=== PATIENT | male | born 1960 | race Caucasian/White ===

== ENCOUNTER 2017-06-27 16:05 | Inpatient (IN) | payer MEDICARE, MEDICAID ==
[2017-06-27] MEDS ORDERED: Ondansetron INJ* 2 MG/ML VIAL IV ONE (16:22)
[2017-06-27] MEDS ORDERED: Pantoprazole IV* 40 MG IV ONE (16:22)
[2017-06-27 16:51] LABS: Hematocrit 52 % (42-52); Hemoglobin 17.5 g/dl (14.0-18.0); Mean Corpuscular HGB Conc 34 g/dl (31-36); Mean Corpuscular Hemoglobin 30 pg (27-31); Mean Corpuscular Volume 90 fL (80-94); Mean Platelet Volume 8 um3 (7.4-10.4); Red Blood Count 5.77 10^6/ul (4.0-5.4); Red Cell Distribution Width 13 % (10.5-15)
[2017-06-27] MEDS ORDERED: Labetalol IV* 5 MG/ML 20 ML VIAL IV PUSH ONE (16:54)
--- NOTE | 2017-06-27 16:59 | RAD ---
Indication: Wheezing. 2 views of the chest including dual energy PA views demonstrates no mediastinal shift. Heart is of normal size and configuration. Lungs are clear. No changes noted since November 22, 2012. IMPRESSION: NO ACTIVE CARDIOPULMONARY DISEASE IS NOTED.
[2017-06-27 17:08] LABS: Albumin 4.2 g/dL (3.2-5.2); BUN/Creatinine Ratio 7.7 (8-20); C Reactive Protein 1.2 mg/L (< 5.00); Calcium 9.2 mg/dL (8.6-10.3); EGFR African American 110.4 (>60); EGFR Non-African American 85.9 (>60); Globulin 3.1 g/dL (2-4); Total Bilirubin 0.3 mg/dL (0.2-1.0); Total Protein 7.3 g/dL (6.4-8.9)
[2017-06-27 17:09] LABS: Troponin I 0.05 ng/mL (<0.04)
[2017-06-27] MEDS ORDERED: Iohexol 350* (CONTRAST) 500 ML MDV IV ONE (17:49)
--- NOTE | 2017-06-27 17:49 | RAD ---
Indication: Nausea and vomiting. Flat plate of the abdomen and upright views of the abdomen demonstrates no free air. No dilated loops of bowel are noted. No definite obstructive pattern is noted. No organomegaly is noted. IMPRESSION: No free air or obstruction is noted.
--- NOTE | 2017-06-27 18:03 | RAD ---
Indication: Shortness of breath, chest pain. Contrast: Administered 77.3 ml of Contrast -- mg/ml CTA of the chest was performed after IV contrast administration. Coronal and sagittal reconstructed images were obtained. The pulmonary arterial tree is well opacified. There are no filling defects present to suggest pulmonary embolus. A.c. ascending, aortic arch and descending thoracic aorta demonstrates no dissection or aneurysmal dilatation. The trachea and major bronchi appear patent. The lung viveros demonstrate no pleural fluid, pneumonia or pneumothorax. No evidence of alveolar consolidation is noted. No pneumothorax is noted. Diffuse hepatic steatosis is noted. IMPRESSION: Pulmonary arterial tree is well opacified. No evidence of pulmonary embolus is noted.
[2017-06-27 18:13] LABS: Magnesium 2.2 mg/dL (1.9-2.7)
[2017-06-27 18:14] LABS: Urine Bacteria Absent (Absent); Urine Bilirubin Negative (Negative); Urine Glucose Negative (Negative); Urine Nitrite Negative (Negative)
[2017-06-27] MEDS ORDERED: Acetaminophen TAB* 325 MG PO PRN (18:23)
[2017-06-27 18:26] LABS: Benzodiazepine Urine Screen None Detected (None Detect)
[2017-06-27] MEDS ORDERED: Thiamine IV 100 MG, Folic Acid IV* 1 MG, Multiple Vitamin IV ADULT* 10 ML in D5NS 0.9% ... IV ONE (18:30)
[2017-06-27] MEDS ORDERED: NS 0.9% 1000 ML* 1,000 ML IV SCH (18:30)
[2017-06-27] MEDS ORDERED: hydrALAZINE IV* 20 MG/ML VIAL IV SLOW PU PRN (18:31)
[2017-06-27] MEDS: Pantoprazole IV* 40 MG IV SCH (18:40)
[2017-06-27] MEDS ORDERED: Multiple Vitamin IV ADULT* 10 ML VIAL ONE (18:42)
[2017-06-27] MEDS ORDERED: D5NS 0.9% 1000 ML BAG* 1,000 ML IV ONE (18:42)
[2017-06-27] MEDS ORDERED: Folic Acid IV* 50 MG/10 ML VIAL ONE (18:42)
[2017-06-27] MEDS ORDERED: Thiamine IV* 100 MG/ML 2 ML VIAL ONE (18:54)
[2017-06-27] MEDS ORDERED: LORazepam TAB(*) 1 MG PO SCH (19:00)
[2017-06-27] MEDS: Sucralfate TAB* 1 GM PO SCH (19:00)
[2017-06-27 20:11] LABS: Hematocrit 50 % (42-52); Hemoglobin 17.5 g/dl (14.0-18.0)
[2017-06-27] MEDS ORDERED: NS 0.9% 500 ML* 500 ML IV ONE (20:29)
[2017-06-27] MEDS ORDERED: amLODIPine TAB* 5 MG PO SCH (21:00)
--- NOTE | 2017-06-27 21:50 | HP ---
CC: Dr. Key; Dr. Saenz * HISTORY AND PHYSICAL: DATE OF ADMISSION: 06/27/17 PRIMARY CARE PROVIDER: Dr. Key. ATTENDING PHYSICIAN WHILE IN THE HOSPITAL: Dr. Ria Lal * (report dictated by Reginald Enriquez NP). CONSULTING TAX CREDIT LEASING CONSULTANT: Dr. Saenz. CHIEF COMPLAINT: 1. Vomiting blood. 2. Epigastric burning. 3. Burning in the chest. HISTORY OF PRESENT ILLNESS: Mr. Recio is a 56-year-old male patient, who says over the last year, he has been having burning in the epigastric area and up into the chest. He has never had an endoscopy before. He has never had any workup of this. He was concerned though because today when he got up, he had the pain again, he vomited up some blood and he pulled his where he lives and the patient called 911 and came in to be evaluated because he said it never happened before. He does state that he does drink. Today, he had two 25-ounce beers. He denies having any shortness of breath. Denies feeling lightheaded or like he is going to faint. He really is just complaining of burning in the epigastric area, going right up into his throat. He denies having any calf tenderness or pain when taking a deep breath. He says that he has not been having any tarry black stools. He does state that he does chew tobacco and, in addition to this, he swallows the tobacco juice. He denies having any recent weight loss and he does admit to having drinking about 4 pots of coffee a day. He came in, was evaluated, and was noted that when he came in, he was tachycardic in the 100s to one teens and he was hypertensive. He was also noted to have indeterminate troponin and his lactic acid was elevated at 2.7. Because of these findings, we were asked to evaluate for admission. PAST MEDICAL HISTORY: Significant for: 1. Hypertension. 2. History of essential tremor. 3. LUH, but he is noncompliant with his mask. 4. Cardiomyopathy, last echo was 14 years ago, we will try to get that record. 5. GERD. 6. Hyperlipidemia. PAST SURGICAL HISTORY: 1. He has had a heart catheterization and denies having any stents. 2. He has had an appendectomy with bowel resection when he was 12 years old. MEDICATIONS: He does report taking a medication that he fills at [facility]. We are trying to get an accurate list at this point as he does not know what he takes. ALLERGIES TO MEDICATIONS: Include LISINOPRIL. FAMILY HISTORY: Mother had a history of cancer. Father was diabetic, CAD, and prostate cancer. SOCIAL HISTORY: He does chew tobacco on a daily basis. He says he drinks occasionally, but again today he had two 25-ounce beers this afternoon. He does live alone. Surrogate decision maker is his brother. REVIEW OF SYSTEMS: There is no documented fever. He denied any significant weight change. No double vision. No ear discharge. Denied having any rhinorrhea. No sore throat. No thyroid enlargement. Denies having any chest pain with exception of that burning. Denies having any shortness of breath. No orthopnea, no nocturnal dyspnea. There is no abdominal pain. No nausea, no vomiting. No dysuria, no frequency. There was no seizure, no loss of consciousness. No pruritus and no skin ulcerations. Review of 14 systems was completed, all others negative. PHYSICAL EXAMINATION GENERAL: At this time, Mr. Recio is a 56-year-old male patient. He is chronically ill-appearing. He appears to be older than his stated age. He is sitting in the ER stretcher. He does not appear to be in any acute distress. VITAL SIGNS: Blood pressure 151/106, pulse 96, respirations 19, O2 sat is 95%, temperature 98.8. HEENT: Head: Atraumatic, normocephalic. Eyes: EOMs intact. Sclerae anicteric, not pale. Throat: Oral mucosa appears to be moist. No oropharyngeal erythema. NECK: Supple. LUNGS: Clear to auscultation. No wheezes, rales, or rhonchi. HEART: Sounds S1, S2. Regular rate and rhythm. No murmurs, rubs, or gallops. ABDOMEN: Soft, flat, nontender. Bowel sounds are present. EXTREMITIES: Pulses are 2+ throughout. No peripheral edema. He is moving all 4 extremities with 5/5 strength. NEUROLOGICAL: The patient is awake, alert, and oriented x3. Tongue midline. Tree Surgeon equal. No gross focal deficits. SKIN: Intact. DIAGNOSTIC STUDIES/LAB DATA: WBC 10.0, RBC of 5.77, hemoglobin 13.5, hematocrit , platelet count was 317. The INR was 0.81, PTT 27.9. Sodium 135, potassium 4, chloride of 100, bicarb of 22, BUN 7, creatinine of 0.91, glucose of 120, lactate 2.7, calcium 9.2, mag was 2.2. Total bili 0.3, AST 22, ALT 23, alk phos of 65. Troponin was 0.05. CRP 1.2. Lipase was normal, albumin 4.2. Urine with 1+ blood, present squamous epithelial cell. Alcohol level was 216. He had a CTA of the chest, thorax, impression: Pulmonary arterial tree is well opacified. No evidence of PE is noted. Abdominal x-ray obtained, today: No free air or obstruction is noted. Chest x-ray showed no active cardiopulmonary disease. Last EKG I have is from 4 years ago, but today's EKG shows a right bundle branch block, rate of 114, no ST elevations or T-wave inversions. It was reviewed to the previous EKG. The previous EKG with a sinus rhythm, rate of 72 , with no right bundle branch block. His last echo again 14 years ago, which was a normal transesophageal echo. Old medical records were reviewed. ASSESSMENT AND PLAN: Mr. Recio is a 56-year-old male patient coming into the ED with complaints of vomiting bright red blood. We were asked to evaluate for admission. He will be admitted under observation status for: 1. Gastrointestinal bleed, presumed upper. At this point, I did touch base with Dr. Saenz, he will see the patient in the morning. The plan will be to put him on Carafate, b.i.d. PPI, serial H and Hs, two IV, hydrate him. We will get a type and screen as well and we will continue to follow him closely and I will put him on again Carafate and b.i.d. PPI. 2. History of hypertension. We will try to get his medications, but for the time being, I will put him on p.r.n. hydralazine. 3. EtOH abuse. His alcohol level is 216, I am going to give him banana bag, go ahead and get him on [facility] protocol and follow him. 4. History of tremors. Continue with supportive care. 5. Obstructive sleep apnea. Follow with his primary. 6. History of cardiomyopathy. Again, last ejection fraction was actually noted to be normal, but we will repeat the echo today given the elevated troponin and we will follow. 7. Indeterminate troponin. This could be just demand ischemia from elevated blood pressure with tachycardia and possible gastrointestinal bleed. We will trend these and follow. If they do elevate, we will get a formal Cardiology consult. He is not having any chest pain now. 8. Lactic acidosis. Again, that could just be from the vomiting, him being dehydrated, and having some mild perfusion due to tachycardia. We will trend these and follow. I do not think he is actively infected. 9. Gastroesophageal reflux disease. Continue with PPI therapy and Carafate. 10. Hyperlipidemia. Continue his current medical regimen. 11. DVT prophylaxis. Because of the active possible gastrointestinal bleed, I am just going to put him on SCDs. 12. Code status. Full code. 13. Fluids, electrolytes, and nutrition. Clear liquid diet. TIME SPENT: On the admission was 60 minutes, greater than half the time was spent [id number] with the patient, obtaining my history and physical, other half of the time was spent going over the plan of care with the patient and implementing plan of care. I did discuss the plan of care with my attending, Dr. Lal; she is in agreement. REGINALD ENRIQUEZ, JAKI [id number]/[facility] #: [id number] YI
[2017-06-27] MEDS: traZODone TAB* 50 MG TAB PO SCH (21:56)
[2017-06-27] MEDS: NS 0.9% 1000 ML* 1,000 ML IV SCH ×2 (22:02→23:37)
[2017-06-27] MEDS: Metoprolol Tartrate TAB* 25 MG PO SCH ×2 (22:21→23:45)
[2017-06-28 00:27] LABS: Hematocrit 44 % (42-52)
[2017-06-28] MEDS: Pantoprazole IV* 40 MG IV SCH ×2 (05:58→18:56)
[2017-06-28] MEDS ORDERED: Omeprazole CAP* 20 MG PO SCH (09:00)
[2017-06-28] MEDS: Folic Acid TAB* 1 MG PO SCH (09:23)
[2017-06-28] MEDS: Metoprolol Tartrate TAB* 25 MG PO SCH (09:23)
[2017-06-28] MEDS: Sucralfate TAB* 1 GM PO SCH ×3 (09:23→16:50)
[2017-06-28] MEDS: Multivitamins/Minerals TAB PO SCH (09:23)
[2017-06-28] MEDS: Thiamine TAB* 100 MG TAB PO SCH (09:23)
--- NOTE | 2017-06-28 10:34 | CONS ---
CC: Fam Key MD * CONSULTATION REPORT: DATE OF CONSULT: 06/28/17 REQUESTING PHYSICIAN: Reginald Enriquez NP INDICATION: Hematemesis x1. NARRATIVE: Mr. Recio is a 56-year-old alcoholic who vomited bright red blood x1 at home and came to the emergency room. The patient was admitted for this. His hemoglobin initially was 17.5, it is now 15 after hydration. His INR is normal. His BUN is normal. His platelets are normal. He does have a history of cardiomyopathy and obstructive sleep apnea. The patient does not like doctors or hospitals. He has not been seen by his primary in "some time." Currently, he denies any abdominal pain. He has had no further vomiting. He denies any black and tarry stools over the past few weeks. He denies any nonsteroidal anti- inflammatory use. He denies any history of GI bleeding in the past. No family history of any GI malignancies or ulcer disease. He drinks at least 48 ounces of beer per day. PAST MEDICAL HISTORY: Significant for a benign essential tremor. He also has heartburn, history of cardiomyopathy, sleep apnea. PAST SURGICAL HISTORY: Surgeries include appendectomy at the age of 12 and then a small bowel resection from what sounds like a small bowel obstruction when he was 12. MEDICATIONS: He states that he takes one medication but he is not sure of the name of it. ALLERGIES: To LISINOPRIL. FAMILY HISTORY: Diabetes, prostate cancer, and coronary artery disease. SOCIAL HISTORY: He abuses tobacco and alcohol. He lives here in [place]. REVIEW OF SYSTEMS: Twelve systems were reviewed, other than that mentioned above in the HPI were unremarkable. PHYSICAL EXAM: Vital Signs: Temperature is 98.1, blood pressure is 139/95, pulse of 77, respiratory rate of 16, O2 sat is 99%. General: Well-appearing male, easily awoken this morning, appears older than his stated age. He is alert, he is oriented, pleasant, and fluent. HEENT: Dentition is poor. Mucous membranes are moist. Neck: Supple. Trachea is midline. Lymph: No supraclavicular or cervical lymphadenopathy. Heart: Regular rate and rhythm. Lungs: Clear to auscultation. Abdomen: Positive bowel sounds. Obese, soft, nontender, nondistended. No hepatosplenomegaly, masses, rebound, or guarding. Flanks are not dull. Skin: Warm and dry. No evidence of spider angiomata. Neuro: He does have a head tremor. There is no evidence of asterixis. LABORATORY DATA: Of note, lactate is increased from 2.7 to 3.3, BUN is 7, creatinine is 0.91. Troponin went from 0.05 to 0.01. INR is 0.86. White count is 10, hemoglobin went from 17.5 to 15, platelets of 317,000. ASSESSMENT AND PLAN: This is a 56-year-old gentleman with one episode of hematemesis in the setting of alcohol abuse. Currently, his hemoglobin is stable, he has not had any further vomiting. His BUN is stable. His platelets are well within the normal range. I do not see any evidence of cirrhosis at this point, thus I think portal hypertensive gastropathy and/or esophageal varices are lower on the list. He very well could have had a Danya-Wynn tear. He denies any non-steroidals, thus making peptic ulcer disease less likely. He could have H. pylori. He does have a history of cardiomyopathy. He unfortunately does not participate in medical care and thus we do not know the current state of his heart. He is an alcoholic. He does have a benign essential tremor. I do not know if he is very tremulous this morning, I do not know if it is from the essential tremor versus withdrawal. I was asked to see the patient for potential upper endoscopy. I do think at some point he does need an upper endoscopy, I am not sure if today is the best day for that. That patient does have an echocardiogram pending. I would like to see the results of that to see what his ejection fraction is prior to sedating him for an endoscopy. He also has, by his report severe sleep apnea; however, he refuses to use CPAP at night. We will continue to follow along and make recommendations as to when his endoscopy should be, but likely it can be deferred to an outpatient setting given the fact his hemoglobin is very normal, very stable and there is no signs or evidence of any active bleeding at this point. We will continue to follow along. [id number]/[facility] #: [id number] [facility]ALTHMary
--- NOTE | 2017-06-28 12:54 | ECHO ---
Patient: RADHA FERREIRA [facility] Rec#: [id number] : 1960 Date: 06/28/2017 Age: 56y Height: 182.88 cm / 72.0 in Weight: 90.72 kg / 199.9 lbs Sex: M BSA: 2.13 Room#: 439 Admit Date#: 06/27/2017 Type: Inpatient Referring: Reginald Enriquez NP Reading: Oralia Barth MD Rn Maternity: Danielle Hendrix RDCS CC: Fam Key MD Transthoracic Echocardiogram Indication: Elevated troponin, HTN, history of cardiomyopathy BP: 139/95 HR: 77 Rhythm: NSR Findings History: HTN, tremor, LUH, cardiomyopathy, GERD, and HLD. Technical Comments: The study quality is fair. The study is technically limited due to poor acoustic windows. Completed at 1015. Left Ventricle: The left ventricular chamber size is normal. Mild concentric left ventricular hypertrophy is observed. Global left ventricular wall motion and contractility are within normal limits. There is normal left ventricular systolic function. The estimated ejection fraction is 55-60%. Abnormal left ventricular diastolic function is observed. Abnormal left ventricular diastolic filling is observed, consistent with impaired relaxation. Left Atrium: The left atrium is mildly dilated. Right Ventricle: Moderator Band present. The right ventricular cavity size is normal. The right ventricular global systolic function is normal. Right Atrium: The right atrium is mildly dilated. Aortic Valve: The aortic valve is trileaflet. The aortic valve leaflets are mildly thickened. There is no evidence of aortic regurgitation. There is no evidence of aortic stenosis. Mitral Valve: The mitral valve leaflets are mildly thickened. There is a trace of mitral regurgitation. There is no evidence of mitral stenosis. Tricuspid Valve: The tricuspid valve leaflets are normal. There is trace tricuspid regurgitation. The right ventricular systolic pressure is estimated at 24 mmHg. No pulmonary hypertension is noted. There is no tricuspid stenosis. Pulmonic Valve: The pulmonic valve appears normal. There is a trace pulmonic regurgitation. There is no pulmonic stenosis. Pericardium: There is no significant pericardial effusion. A pericardial fat pad is visualized. Aorta: There is borderline dilatation of the ascending aorta. There is no dilatation of the aortic arch. There is mild dilatation of the aortic root. Pulmonary Artery: The main pulmonary artery is not well visualized. Venous: The venous system is not well visualized. The inferior vena cava is not visualized. Summary: There are changes noted when compared to the previous study done on 07/13/2003, as JOANNA then was reported normal. Conclusions The left ventricular chamber size is normal. Mild concentric left ventricular hypertrophy is observed. There is normal left ventricular systolic function. The estimated ejection fraction is 55-60%. Abnormal left ventricular diastolic function is observed. Abnormal left ventricular diastolic filling is observed, consistent with impaired relaxation. The left atrium is mildly dilated. The right atrium is mildly dilated. There is a trace of mitral regurgitation. There is trace tricuspid regurgitation. There is a trace pulmonic regurgitation. There is mild dilatation of the aortic root. Measurements Name Value Normal Range RVIDd (AP) 2D 3.6 cm (0.9 - 2.6) RVDdMajor (2D) 4.4 cm (2.2 - 4.4) RAd ISD 4CH 5.3 cm (3.4 - 4.9) RA (A4C)W 4.2 cm (2.9 - 4.6) IVSd (2D) 1.2 cm (0.6 - 1) LVPWd (2D) 1.2 cm (0.6 - 1) LVIDd (2D) 3.8 cm (3.6 - 5.4) LVIDs (2D) 2.5 cm - LV FS (2D) 33 % (25 - 45) Aortic Annulus 2.4 cm (1.4 - 2.6) Ao root diameter (2D) 3.6 cm (2.1 - 3.5) Ascending Ao 3.4 cm (2.1 - 3.4) Aortic arch 3 cm (1.8 - 3.4) LA dimension (AP) 2D 3.2 cm (2.3 - 3.8) LAd ISD 4CH 5.4 cm (2.9 - 5.3) LA ISD 4CH W 4.5 cm (2.5 - 4.5) Name Value Normal Range LA ESV SP 4CH (A/L) 70 ml - LA ESV SP 2CH (A/L) 66 ml - LA ESV BP (A/L) 70 ml - LA ESV BP (A/L) index 33 ml/m2 - LA ESV SP 4CH (MOD) 60 ml - LA ESV SP 2CH (MOD) 60 ml - Name Value Normal Range MV E-wave Vmax 0.52 m/sec - MV deceleration time 289.6 msec - MV A-wave Vmax 0.89 m/sec - MV E:A ratio 0.58 ratio - LV septal e' Vmax 0.06 m/sec - LV lateral e' Vmax 0.11 m/sec - LV E:e' septal ratio 8.66 ratio - LV E:e' lateral ratio 4.73 ratio - Name Value Normal Range AV Vmax 1.3 m/sec - AV VTI 23.6 cm - AV peak gradient 6.42 mmHg - AV mean gradient 3.91 mmHg - LVOT Vmax 0.96 m/sec - LVOT VTI 18.6 cm - LVOT peak gradient 3.68 mmHg - LVOT mean gradient 2.1 mmHg - SALAS Vmax 0.81 m/sec - Name Value Normal Range TR Vmax 2 m/sec - TR peak gradient 16 mmHg - RAP 8 mmHg - RVSP 24 mmHg - Name Value Normal Range PV Vmax 0.89 m/sec - PV peak gradient 3.19 mmHg -
[2017-06-28 13:55] LABS: Hematocrit 41 % (42-52); Hemoglobin 14.1 g/dl (14.0-18.0); Mean Corpuscular HGB Conc 34 g/dl (31-36); Mean Corpuscular Hemoglobin 31 pg (27-31); Mean Corpuscular Volume 90 fL (80-94); Mean Platelet Volume 8 um3 (7.4-10.4); Red Cell Distribution Width 13 % (10.5-15); White Blood Count 7.1 10^3/ul (3.5-10.8)
--- NOTE | 2017-06-28 18:31 | PN ---
Subjective Date of Service: 06/28/17 Interval History: Pt is feeling ok. No further vomiting but he has not had regular food. He denies any abdominal pain. He states his tremor is at baseline. Objective Active Medications: Acetaminophen (Tylenol Tab*) 650 mg PO Q4H PRN PRN Reason: PAIN Folic Acid (Folvite Tab*) 1 mg PO DAILY [facility] Last Admin: 06/28/17 09:23 Dose: 1 mg Hydralazine HCl (Apresoline Iv*) 5 mg IV SLOW PU Q6H PRN PRN Reason: BLOOD PRESSURE Sodium Chloride (Ns 0.9% 1000 Ml*) 1,000 mls @ 100 mls/hr IV PER RATE [facility] Last Admin: 06/28/17 03:15 Dose: 100 mls/hr Lorazepam (Ativan Tab(*)) 0 - 6 mg PO .PER [facility] PROTOCOL [facility] PRN Reason: Protocol Last Admin: 06/27/17 22:34 Dose: 2 mg Metoprolol Tartrate (Lopressor Tab*) 25 mg PO BID [facility] Last Admin: 06/28/17 09:23 Dose: 25 mg Multivitamins/Minerals (Theragran/Minerals Tab*) 1 tab PO DAILY [facility] Last Admin: 06/28/17 09:23 Dose: 1 tab Pantoprazole Sodium (Protonix Iv*) 40 mg IV Q12H [facility] Last Admin: 06/28/17 05:58 Dose: 40 mg Sucralfate (Carafate*) 1 gm PO AC [facility] Last Admin: 06/28/17 16:50 Dose: 1 gm Thiamine HCl (Vitamin B-1 Tab*) 100 mg PO DAILY [facility] Last Admin: 06/28/17 09:23 Dose: 100 mg Trazodone HCl (Desyrel Tab*) 150 mg PO BEDTIME [facility] Last Admin: 06/27/17 21:56 Dose: 150 mg Vital Signs - 8 hr 06/28/17 06/28/17 06/28/17 12:06 14:15 15:48 Temperature 99.0 F 98.1 F 98.2 F Pulse Rate 73 72 68 Respiratory 18 20 16 Rate Blood Pressure 140/106 162/101 168/104 (mmHg) O2 Sat by Pulse 97 97 94 Oximetry Oxygen Devices in Use Now: None Appearance: Middle aged male sitting up in bed, NAD Eyes: No Scleral Icterus Ears/Nose/Mouth/Throat: Mucous Membranes Moist Respiratory: Symmetrical Chest Expansion and Respiratory Effort, Clear to Auscultation Cardiovascular: NL Sounds; No Murmurs; No JVD, RRR, No Edema Abdominal: NL Sounds; No Tenderness; No Distention Extremities: No Clubbing, Cyanosis Skin: No Rash or Ulcers, No Nodules or Sclerosis Neurological: Alert and Oriented x 3 Result Diagrams: 06/28/17 13:14 06/27/17 16:35 Assess/Plan/Problems-Billing Mr Recio is a 56 yo M who has a h/o alcoholism, HTN and LUH who presented to the ER with c/o hematemesis. - Patient Problems (1) Hematemesis Current Visit: Yes Status: Acute Code(s): K92.0 - HEMATEMESIS SNOMED Code( s): 4354801 Comment: No further episodes. Possibly sabas dwyer tear. Continue protonix IV BID. I have encouraged the patient to abstain from EtOH. (2) Alcoholism Current Visit: Yes Status: Acute Code(s): F10.20 - ALCOHOL DEPENDENCE, UNCOMPLICATED SNOMED Code(s): 4676824 Comment: No signs of withdrawal. Will continue WAM protocol overnight. (3) HTN (hypertension) Current Visit: Yes Status: Acute Code(s): I10 - ESSENTIAL (PRIMARY) HYPERTENSION SNOMED Code(s): 28820710 Comment: BP is uncontrolled. Will start amlodipine 5mg daily. Stop metoprolol. (4) DVT prophylaxis Current Visit: Yes Status: Acute Code(s): IRZ1140 - SNOMED Code(s): 255805321 Comment: ambulation (5) Full code status Current Visit: Yes Status: Acute Code(s): Z78.9 - OTHER SPECIFIED HEALTH STATUS SNOMED Code(s): 106712850
[2017-06-28] MEDS: amLODIPine TAB* 5 MG PO SCH (18:56)
[2017-06-28] MEDS: traZODone TAB* 50 MG TAB PO SCH (22:04)
[2017-06-29 06:19] LABS: Hematocrit 43 % (42-52); Hemoglobin 14.9 g/dl (14.0-18.0); Mean Corpuscular HGB Conc 35 g/dl (31-36); Mean Corpuscular Hemoglobin 31 pg (27-31); Mean Corpuscular Volume 89 fL (80-94); Mean Platelet Volume 8 um3 (7.4-10.4); Red Blood Count 4.85 10^6/ul (4.0-5.4); Red Cell Distribution Width 13 % (10.5-15); White Blood Count 6.9 10^3/ul (3.5-10.8)
[2017-06-29 06:34] LABS: BUN/Creatinine Ratio 7.5 (8-20); Calcium 8.9 mg/dL (8.6-10.3); EGFR African American 91.6 (>60); EGFR Non-African American 71.2 (>60); Potassium 3.7 mmol/L (3.5-5.0)
[2017-06-29] MEDS: Sucralfate TAB* 1 GM PO SCH ×2 (07:23→12:27)
[2017-06-29] MEDS: Pantoprazole IV* 40 MG IV SCH (07:24)
[2017-06-29] MEDS: amLODIPine TAB* 5 MG PO SCH (08:35)
[2017-06-29] MEDS: Multivitamins/Minerals TAB PO SCH (08:35)
[2017-06-29] MEDS: Folic Acid TAB* 1 MG PO SCH (08:36)
[2017-06-29] MEDS: Thiamine TAB* 100 MG TAB PO SCH (08:36)
--- NOTE | 2017-06-29 12:00 | PN ---
Subjective Date of Service: 06/29/17 Interval History: Pt is feeling well. He states he did vomit this am but he thinks it is because he put too much cream cheese on his bagel. There was no blood in the vomit. He did state that after eating goulash last night he had bad acid reflux. Objective Active Medications: Acetaminophen (Tylenol Tab*) 650 mg PO Q4H PRN PRN Reason: PAIN Amlodipine Besylate (Norvasc Tab*) 5 mg PO DAILY [facility] Last Admin: 06/29/17 08:35 Dose: 5 mg Folic Acid (Folvite Tab*) 1 mg PO DAILY [facility] Last Admin: 06/29/17 08:36 Dose: 1 mg Hydralazine HCl (Apresoline Iv*) 5 mg IV SLOW PU Q6H PRN PRN Reason: BLOOD PRESSURE Sodium Chloride (Ns 0.9% 1000 Ml*) 1,000 mls @ 100 mls/hr IV PER RATE [facility] Last Admin: 06/28/17 03:15 Dose: 100 mls/hr Lorazepam (Ativan Tab(*)) 0 - 6 mg PO .PER [facility] PROTOCOL [facility] PRN Reason: Protocol Last Admin: 06/27/17 22:34 Dose: 2 mg Multivitamins/Minerals (Theragran/Minerals Tab*) 1 tab PO DAILY [facility] Last Admin: 06/29/17 08:35 Dose: 1 tab Pantoprazole Sodium (Protonix Iv*) 40 mg IV Q12H [facility] Last Admin: 06/29/17 07:24 Dose: 40 mg Sucralfate (Carafate*) 1 gm PO AC [facility] Last Admin: 06/29/17 07:23 Dose: 1 gm Thiamine HCl (Vitamin B-1 Tab*) 100 mg PO DAILY [facility] Last Admin: 06/29/17 08:36 Dose: 100 mg Trazodone HCl (Desyrel Tab*) 150 mg PO BEDTIME [facility] Last Admin: 06/28/17 22:04 Dose: 150 mg Vital Signs - 8 hr 06/29/17 06/29/17 07:30 07:54 Temperature 98.4 F Pulse Rate 72 Respiratory 20 20 Rate Blood Pressure 144/99 (mmHg) O2 Sat by Pulse 97 Oximetry Oxygen Devices in Use Now: None Appearance: Middle aged male sitting up in bed, NAD Eyes: No Scleral Icterus Ears/Nose/Mouth/Throat: Mucous Membranes Moist Respiratory: Symmetrical Chest Expansion and Respiratory Effort, Clear to Auscultation Cardiovascular: NL Sounds; No Murmurs; No JVD, RRR, No Edema Abdominal: NL Sounds; No Tenderness; No Distention Extremities: No Clubbing, Cyanosis Skin: No Rash or Ulcers, No Nodules or Sclerosis Neurological: Alert and Oriented x 3 Result Diagrams: 06/29/17 06:14 06/29/17 06:14 Microbiology and Other Data: Microbiology 06/28/17 18:50 Stool Occult Blood (LUIS) - Final Stool Assess/Plan/Problems-Billing Mr Recio is a 56 yo M who has a h/o alcoholism, HTN and LUH who presented to the ER with c/o hematemesis. - Patient Problems (1) Hematemesis Current Visit: Yes Status: Acute Code(s): K92.0 - HEMATEMESIS SNOMED Code( s): 3860809 Comment: ? sabas dwyer tear vs gastritis. Will keept the patient on prilosec BID x2 weeks then go down to daily. He will need an outpatient EGD per Dr. Saenz. (2) Alcoholism Current Visit: Yes Status: Acute Code(s): F10.20 - ALCOHOL DEPENDENCE, UNCOMPLICATED SNOMED Code(s): 4554752 Comment: No signs of withdrawal. We have again discussed abstaining from alcohol. Pt is stable for d/c home. (3) HTN (hypertension) Current Visit: Yes Status: Acute Code(s): I10 - ESSENTIAL (PRIMARY) HYPERTENSION SNOMED Code(s): 93005087 Comment: BP is improved on amlodipine. Continue 5mg daily and follow up with his PCP. (4) DVT prophylaxis Current Visit: Yes Status: Acute Code(s): UUK8186 - SNOMED Code(s): 488476447 Comment: ambulation (5) Full code status Current Visit: Yes Status: Acute Code(s): Z78.9 - OTHER SPECIFIED HEALTH STATUS SNOMED Code(s): 786461216 Status and Disposition: d/c home
[2017-06-29 13:11] VITALS: BP 130/109
--- NOTE | 2017-06-29 18:54 | ED ---
Manav Cantu Angela, scribed for Geremias Go MD on 06/27/17 at 1620 . GI/ HPI - HPI Summary HPI Summary: This pt is a 56 y/o male presenting to [facility] via EMS c/o nausea and 1 episode of vomiting at 15:00 today. Per EMS, pt had sudden onset of vomiting for 10 minutes. He reports bloody emesis. Pt notes he had a "burning feeling" in his stomach prior to episode of emesis. He states drinking 4-5 drinks every other day, and reports today he only had 1 beer. Pt states chewing tobacco. PMHx includes alcohol abuse. - History of Current Complaint Chief Complaint: EDNauseaVomitDiarrh Time Seen by Provider: 06/27/17 16:18 Stated Complaint: NAUSEA/VOMITTING Hx Obtained From: Patient Onset/Duration: Started Hours Ago, Still Present Timing: Intermittent, Lasting Hours Pain Intensity: 0 Associated Signs and Symptoms: Positive: Hematemesis, Nausea, Vomiting, Other: - "burning in stomach" - Allergy/Home Medications Allergies/Adverse Reactions: Allergies Allergy/AdvReac Type Severity Reaction Status Date / Time Lisinopril Allergy Unknown Unknown Verified 06/27/17 16:16 Reaction Details Home Medications: Home Medications Omeprazole CAP* [Prilosec CAP* 20 MG] 20 mg PO DAILY 06/27/17 [History Confirmed 06/27/17] traZODone TAB* [Desyrel TAB*] 150 mg PO BEDTIME 06/27/17 [History Confirmed 02/04] PMH/Surg Hx/FS Hx/Imm Hx Endocrine/Hematology History: Denies: Hx Diabetes Cardiovascular History: Reports: Hx Hypertension - non complinace with meds Denies: Hx Pacemaker/ICD Sensory History: Denies: Hx Hearing Aid Psychiatric History: Reports: Hx Substance Abuse - alcoholic drinks daily drank last nite Denies: Hx Panic Disorder - Surgical History Surgery Procedure, Year, and Place: 1973 APPENDIX AND PARTIAL INTESTINE REMOVAL FROM A BLOCKAGE. TONSILS Infectious Disease History: No Infectious Disease History: Denies: Traveled Outside the [place] in Last 30 Days - Family History Known Family History: Positive: Diabetes - Social History Substance Use Type: Reports: None Review of Systems Negative: Fever, Chills Gastrointestinal: Other - "burning feeling in stomach" Positive: Vomiting, Nausea All Other Systems Reviewed And Are Negative: Yes Physical Exam - Summary Physical Exam Summary: VITAL SIGNS: Reviewed. GENERAL: Patient is a well-developed and nourished male who is lying comfortable in the stretcher. Patient is not in any acute respiratory distress. Alcohol smell in his breath. HEAD AND FACE: No signs of trauma. No ecchymosis, hematomas or skull depressions. No sinus tenderness. EYES: PERRLA, EOMI x 2, No injected conjunctiva, no nystagmus. EARS: Hearing grossly intact. Ear canals and tympanic membranes are within normal limits. MOUTH: Oropharynx within normal limits. NECK: Supple, trachea is midline, no adenopathy, no JVD, no carotid bruit, no c- spine tenderness, neck with full ROM. CHEST: Symmetric, no tenderness at palpation LUNGS: Left lung crackles. CVS: Regular rate and rhythm, S1 and S2 present, no gallops appreciated. There is an ejection systolic murmur. ABDOMEN: Soft, non-tender. No signs of distention. No rebound no guarding, and no masses palpated. Bowel sounds are normal. EXTREMITIES: FROM in all major joints, no edema, no cyanosis or clubbing. NEURO: Alert and oriented x 3. No acute neurological deficits. Speech is normal and follows commands. SKIN: Dry and warm Triage Information Reviewed: Yes Vital Signs On Initial Exam: Initial Vitals Temp Pulse Resp BP Pulse Ox 98.8 F 116 12 140/109 94 06/27/17 16:14 06/27/17 16:14 06/27/17 16:14 06/27/17 16:14 06/27/17 16:14 Vital Signs Reviewed: Yes Diagnostics - Vital Signs Vital Signs Temp Pulse Resp BP Pulse Ox 06/27/17 16:14 98.8 F 116 12 140/109 94 - Laboratory Result Diagrams: 06/27/17 16:35 06/27/17 16:35 Lab Statement: Any lab studies that have been ordered have been reviewed, and results considered in the medical decision making process. - Radiology Chest XR Xray Interpretation: No Acute Changes - IMPRESSION: No active cardiopulmonary disease is noted. ED physician has reviewed this radiology report and agrees. Radiology Interpretation Completed By: Radiologist Abdomen XR Xray Interpretation: No Acute Changes - IMPRESSION: no free air or obstruction is noted. ED physician has reviewed this radiology report and agrees. Radiology Interpretation Completed By: Radiologist - EKG 1624 Cardiac Rate: Tachycardia EKG Rhythm: Sinus Rhythm - at 114 bpm EKG Interpretation: Right bundle branch block EKG Comparison: Other - Different from previous EKG done on 03/28/13. Re-Evaluation - Re-Evaluation First Eval Re-Evaluation Time: 17:24 GIGU Course/Dx - Course Assessment/Plan: This pt is a 56 y/o male presenting to [facility] via EMS c/o nausea and 1 episode of vomiting at 15:00 today. Per EMS, pt had sudden onset of vomiting for 10 minutes. He reports bloody emesis. Pt notes he had a " burning feeling" in his stomach prior to episode of emesis. He states drinking 4 -5 drinks every other day, and reports today he only had 1 beer. Pt states chewing tobacco. Test results without significant abnormalities except for glucose of 120, troponin is 0.05, serum alcohol 216. Chest XR shows no active cardiopulmonary disease is noted. Abdomen XR shows no free air or obstruction is noted. At this point I discussed the test results and findings with MARICARMEN Hsu from the hospitalist services, who discussed with Dr. Villatoro, and accepted the pt for admission to rule out a non ST elevation [place]. He requested to do a CTA, which he will follow up on the results. Pt is hemodynamically stable, alert and oriented x3. PMHx includes alcohol abuse. - Diagnoses Provider Diagnoses: increased troponin, r/o ACS - Physician Notifications Discussed Care Of Patient With: Reginald Enriquez Time Discussed With Above Provider: 17:23 Instructed by Provider To: Other - I discussed the pt's case with MARICARMEN Hsu from the hospitalist services, who discussed with Dr. Villatoro, who agreed to admit the pt. Discharge - Discharge Plan Condition: Stable Disposition: ADMITTED TO [facility] Referrals: Fam Key MD [Primary Care Provider] - The documentation as recorded by the Manav frances Angela accurately reflects the service I personally performed and the decisions made by me, Geremias Go MD.
== END 2017-06-29 13:27 | disposition home or self-care (01) | DRG 378 ==
LOC: ED 16:05 → MEDTELE 18:17 → OBSVTOIN 06-28 09:00
PROVIDERS: ADMIT Hospitalist; ATTEND Hospitalist
DX: K92.0 Hematemesis (principal); E87.2 Acidosis; I42.9 Cardiomyopathy, unspecified; I10 Essential (primary) hypertension; E78.5 Hyperlipidemia, unspecified; F10.10 Alcohol abuse, uncomplicated; Y90.9 Presence of alcohol in blood, level not specified; F10.20 Alcohol dependence, uncomplicated; F17.220 Nicotine dependence, chewing tobacco, uncomplicated; G25.0 Essential tremor; G47.33 Obstructive sleep apnea (adult) (pediatric); K21.9 Gastro-esophageal reflux disease without esophagitis; I45.10 Unspecified right bundle-branch block; Z83.3 Family history of diabetes mellitus; Z82.49 Family history of ischemic heart disease and other diseases of the circulatory system; Z80.42 Family history of malignant neoplasm of prostate; Z88.8 Allergy status to other drugs, medicaments and biological substances; Z91.14 Patient's other noncompliance with medication regimen
CPT/HCPCS: 36415; 71020; 71275; 74020; 80048; 80053; 80307; 80320; 81003; 81015; 82272; 83605; 83690; 83735; 83880; 84484; 85014; 85018; 85025; 85027; 85610; 85730; 86140; 86850; 86900; 86901; 87040; 93005; 93306; A9270-GY; G0378; G0480; J2405; J3411; Q9967

== ENCOUNTER 2018-09-08 12:58 | Emergency (ER) | payer MEDICAID, MEDICARE ==
[2018-09-08 16:28] VITALS: BP 143/111
--- NOTE | 2018-09-09 05:26 | ED ---
Throat Pain/Nasal Congestion - HPI Summary HPI Summary: Patient is a 58-year-old male with a history of tremor, vertigo and hypertension presenting to the ED with a 4 day history of bilateral ear pain and dizziness. He denies any ear pain currently, however states yesterday with ear pain he developed discharge from the right ear. He denies any known cerumen impaction or history of such. He states he has had tinnitus over the past several years, but has not seen ENT. Patient states he gets dizzy and vertigo when he has ear infections. History of ear infections in the past. Denies any CP or SOB. He does endorse cough x 2 weeks. - History of Current Complaint Chief Complaint: EDEarPain Time Seen by Provider: 09/08/18 14:01 Hx Obtained From: Patient Onset/Duration: Sudden Onset Severity: Moderate - Epiglottits Risk Factors Epiglottis Risk Factors: Negative - Allergies/Home Medications Allergies/Adverse Reactions: Allergies Allergy/AdvReac Type Severity Reaction Status Date / Time MS Lisinopril [Lisinopril] Allergy Unknown Unknown Verified 06/27/17 16:16 Reaction Details PMH/Surg Hx/FS Hx/Imm Hx Previously Healthy: Yes Endocrine/Hematology History: Denies: Hx Diabetes Cardiovascular History: Reports: Hx Hypertension - non complinace with meds Denies: Hx Pacemaker/ICD History: Denies: Hx Renal Disease Sensory History: Reports: Hx Contacts or Glasses - did not bring it to the hospital Denies: Hx Hearing Aid Opthamlomology History: Reports: Hx Contacts or Glasses - did not bring it to the hospital Psychiatric History: Reports: Hx Substance Abuse - alcoholic drinks daily drank last nite Denies: Hx Panic Disorder - Surgical History Surgery Procedure, Year, and Place: 1972 APPENDIX AND PARTIAL INTESTINE REMOVAL FROM A BLOCKAGE. TONSILS - Immunization History Hx Pertussis Vaccination: No Immunizations Up to Date: Yes Infectious Disease History: No Infectious Disease History: Denies: Traveled Outside the [place] in Last 30 Days - Family History Known Family History: Positive: Diabetes - Social History Occupation: Unemployed, Disabled Lives: With Family Alcohol Use: Daily Alcohol Amount: 4-5 drinks/day Hx Substance Use: No Substance Use Type: Reports: None Hx Tobacco Use: Yes - CHEW Smoking Status (MU): Former Smoker Review of Systems Constitutional: Negative Negative: Fever, Chills, Fatigue, Skin Diaphoresis Positive: Ear Ache Negative: Palpitations, Chest Pain Negative: Shortness Of Breath, Cough Negative: Abdominal Pain, Vomiting, Diarrhea, Nausea Negative: Arthralgia Skin: Negative Neurological: Negative All Other Systems Reviewed And Are Negative: Yes Physical Exam Triage Information Reviewed: Yes Vital Signs On Initial Exam: Initial Vitals Temp Pulse Resp BP Pulse Ox 96.9 F 118 20 142/120 94 09/08/18 13:01 09/08/18 13:01 09/08/18 13:01 09/08/18 13:01 09/08/18 13:01 Vital Signs Reviewed: Yes Appearance: Positive: Well-Appearing, Well-Nourished Skin: Positive: Warm, Skin Color Reflects Adequate Perfusion Head/Face: Positive: Normal Head/Face Inspection Eyes: Positive: EOMI, SEPIDEH, Conjunctiva Clear ENT: Positive: TM red - pus pocket to L TM after flush Neck: Positive: Supple, No Lymphadenopathy Respiratory/Lung Sounds: Positive: Clear to Auscultation, Breath Sounds Present Cardiovascular: Positive: RRR, Pulses are Symmetrical in both Upper and Lower Extremities Neurological: Positive: Sensory/Motor Intact, Alert, Oriented to Person Place, Time, Speech Normal Psychiatric: Positive: Affect/Mood Appropriate Diagnostics - Vital Signs Vital Signs Temp Pulse Resp BP Pulse Ox 09/08/18 16:26 98.4 F 95 20 143/111 98 09/08/18 13:01 96.9 F 118 20 142/120 94 - Laboratory Lab Statement: Any lab studies that have been ordered have been reviewed, and results considered in the medical decision making process. EENT Course/Dx - Course Course Of Treatment: During the patient's visit, he is evaluated for bilateral ear pain which has been present for 4 days but denies any at this time. He endorses decreased hearing bilaterally. Endorses tinnitus bilaterally for several years. On physical examination, there is occlusion of the left ear with cerumen impaction, right ear without erythema or pus pocket. He endorses persistent cough x 2 weeks, so chest xray obtained. Lungs slightly rhonchorous bilaterally. No wheezing noted. Ear irrigation to the left TM with good effect. Erythematous TM with pus pocket, no drainage noted. Diagnosed with otitis media. Chest x-ray shows no acute cardiopulmonary disease. He is given meclizine for dizziness. - Differential Diagnoses Differential Diagnoses: Otitis Externa, Otitis Media, Other - tinnitis, cerumen impaction, vertigo - Diagnoses Provider Diagnoses: Vertigo, Otitis media Discharge - Sign-Out/Discharge Documenting (check all that apply): Patient Departure Patient Received Moderate/Deep Sedation with Procedure: No - Discharge Plan Condition: Stable Disposition: HOME Prescriptions: Amoxicillin/Clavulanate TAB* [Augmentin TAB 875*] 875 mg PO BID #14 tab Meclizine TAB* [Antivert 12.5 TAB*] 12.5 mg PO TID PRN #12 tab MDD 3 PRN Reason: Dizziness Patient Education Materials: Ear Infection (ED) Referrals: Nick Manzo MD [Medical Doctor] - Fam Key MD [Primary Care Provider] - Additional Instructions: Take Meclizine up to three times daily for dizziness Take Augmentin twice daily x 7 days for otitis media Please follow up with ENT if symptoms worsen - Billing Disposition and Condition Condition: STABLE Disposition: Home
== END 2018-09-08 16:30 | disposition home or self-care (01) ==
LOC: ED 12:58
DX: H66.92 Otitis media, unspecified, left ear (principal); R42 Dizziness and giddiness; I10 Essential (primary) hypertension; Z91.19 Patient's noncompliance with other medical treatment and regimen; Z87.891 Personal history of nicotine dependence
CPT/HCPCS: 71046; 99282

== ENCOUNTER 2020-06-26 17:53 | Inpatient (IN) ==
[2020-06-26 18:46] LABS: ABS Basophils 0.1 10^3/ul (0-0.2); ABS Lymphocytes 1.1 10^3/ul (1.0-4.8); ABS Monocytes 0.2 10^3/ul (0-0.8); ABS Neutrophils 3.1 10^3/ul (1.5-7.7); Eosinophil % 0.2 %; Hematocrit 48 % (42-52); Hemoglobin 16.5 g/dL (14.0-18.0); Lymphocyte % 23.7 %; Mean Corpuscular HGB Conc 34 g/dL (31-36); Mean Corpuscular Hemoglobin 32 pg (27-31); Mean Corpuscular Volume 95 fL (80-94); Mean Platelet Volume 8.4 fL (7.4-10.4); Nucleated Red Blood Cells % 0.1; Platelet Count 151 10^3/uL (150-450); Red Blood Count 5.11 10^6 /uL (4.18-5.48); Red Cell Distribution Width 14 % (10-15); White Blood Count 4.4 10^3/uL (3.5-10.8)
[2020-06-26 18:53] LABS: INR 0.91 (0.82-1.09)
[2020-06-26 19:04] LABS: ALT 107 U/L (7-52); AST 129 U/L (13-39); Albumin 4.3 g/dL (3.2-5.2); Albumin/Globulin Ratio 1.4 (1-3); Alkaline Phosphatase 65 U/L (34-104); Anion Gap 15 mmol/L (2-11); Blood Urea Nitrogen 9 mg/dL (6-24); CO2 Carbon Dioxide 21 mmol/L (22-32); Calcium 9.4 mg/dL (8.6-10.3); Chloride 96 mmol/L (101-111); EGFR Non-African American 95.8 (>60); Glucose 116 mg/dL (70-100); Magnesium 2.1 mg/dL (1.9-2.7); Potassium 4.1 mmol/L (3.5-5.0); Sodium 132 mmol/L (135-145); Total Protein 7.3 g/dL (6.4-8.9)
[2020-06-26 19:11] LABS: Troponin I 0.04 ng/mL (<0.03)
[2020-06-26] MEDS ORDERED: NS 0.9% 1000 ml BAG 1,000 ML IV ONE (19:14)
[2020-06-26 19:22] LABS: Alcohol, S 418 mg/dL (<10)
[2020-06-26 19:32] LABS: TSH Ultra Thyroid Stim Horm 0.88 mcIU/mL (0.34-5.60)
[2020-06-26 19:34] LABS: Creatine Kinase 142 U/L (10-223)
[2020-06-26 20:47] LABS: Urine Appearance Clear; Urine Bilirubin Negative (Negative); Urine Blood Negative (Negative); Urine Color Yellow; Urine Glucose Negative (Negative); Urine Ketones Negative (Negative); Urine Nitrite Negative (Negative); Urine Protein Negative (Negative); Urine Specific Gravity 1.006 (1.010-1.030); Urine Urobilinogen Positive (Negative)
[2020-06-26 21:47] LABS: Troponin I 0.04 ng/mL (<0.03)
[2020-06-26] MEDS ORDERED: Ondansetron 4 mg VIAL 2 MG/ML 2 ml VIAL IV ONE (22:20)
[2020-06-26] MEDS ORDERED: Lorazepam PYXIS KEY PRN (23:05)
[2020-06-26] MEDS ORDERED: LORazepam 2 mg VIAL 1 ml IV PUSH ONE (23:05)
[2020-06-26] MEDS ORDERED: Thiamine 100 MG/ML 2 ml VIAL (200 mg) IM ONE (23:17)
[2020-06-26] MEDS ORDERED: Lorazepam PYXIS KEY ONE (23:17)
[2020-06-26] MEDS ORDERED: LORazepam 2 mg VIAL 1 ml IV PUSH SCH (23:45)
[2020-06-27 02:00] LABS: Troponin I 0.05 ng/mL (<0.03)
[2020-06-27] MEDS ORDERED: LORazepam 2 mg VIAL 1 ml IV PUSH ONE (04:15)
[2020-06-27] MEDS ORDERED: Lorazepam PYXIS KEY PRN (04:15)
[2020-06-27] MEDS ORDERED: Lorazepam PYXIS KEY ONE (04:16)
[2020-06-27] MEDS ORDERED: Diazepam INJ CARPUJECT 5 MG/ML IV ONE (07:54)
[2020-06-27] MEDS ORDERED: Thiamine 100 MG/ML 2 ml VIAL 100 MG, Folic Acid 1 MG, Multiple Vitamin IV ADULT 10 ML i... IV ONE (07:55)
[2020-06-27] MEDS ORDERED: Ondansetron 4 mg VIAL 2 MG/ML 2 ml VIAL IV PRN (08:15)
[2020-06-27] MEDS ORDERED: Al Hydrox/Mg Hydrox/Simet LIQ 30 ML UDC PO PRN (08:15)
[2020-06-27] MEDS: LORazepam 2 mg VIAL 1 ml IV PUSH SCH ×2 (10:52→12:53)
[2020-06-27] MEDS: Lactated Ringers 1000 ml BAG 1,000 ML IV SCH (11:00)
[2020-06-27] MEDS: Multivitamins/Minerals TAB PO SCH (11:03)
[2020-06-27 12:19] LABS: Hepatitis B Surface Antigen Nonreactive (Nonreactive)
[2020-06-27 12:25] LABS: Hepatitis A Ab IgM Negative (Negative); Hepatitis B Core IgM Nonreactive (Nonreactive)
[2020-06-27 12:36] LABS: Hepatitis C Antibody Negative (Negative)
[2020-06-28] MEDS: Lactated Ringers 1000 ml BAG 1,000 ML IV SCH ×2 (00:13→16:40)
[2020-06-28 05:45] LABS: ABS Lymphocytes 1.2 10^3/ul (1.0-4.8); ABS Monocytes 0.6 10^3/ul (0-0.8); ABS Neutrophils 3.3 10^3/ul (1.5-7.7); Eosinophil % 0.8 %; Hematocrit 45 % (42-52); Hemoglobin 15.1 g/dL (14.0-18.0); Lymphocyte % 22.9 %; Mean Corpuscular HGB Conc 34 g/dL (31-36); Mean Corpuscular Hemoglobin 32 pg (27-31); Mean Corpuscular Volume 96 fL (80-94); Mean Platelet Volume 9.4 fL (7.4-10.4); Platelet Count 115 10^3/uL (150-450); Red Blood Count 4.67 10^6 /uL (4.18-5.48); Red Cell Distribution Width 14 % (10-15); White Blood Count 5.1 10^3/uL (3.5-10.8)
[2020-06-28 05:57] LABS: Albumin 3.8 g/dL (3.2-5.2); Albumin/Globulin Ratio 1.5 (1-3); BUN/Creatinine Ratio 15.1 (8-20); Calcium 9.5 mg/dL (8.6-10.3); EGFR African American 109.8 (>60); EGFR Non-African American 90.7 (>60); Globulin 2.5 g/dL (2-4); Potassium 4.1 mmol/L (3.5-5.0); Total Bilirubin 1.3 mg/dL (0.2-1.0); Total Protein 6.3 g/dL (6.4-8.9)
[2020-06-28] MEDS: Multivitamins/Minerals TAB PO SCH (09:24)
[2020-06-29] MEDS: Lactated Ringers 1000 ml BAG 1,000 ML IV SCH (05:24)
[2020-06-29] MEDS: Multivitamins/Minerals TAB PO SCH (09:36)
[2020-06-29 13:06] LABS: Ceruloplasmin 21.6 mg/dL
[2020-06-30] MEDS: Lactated Ringers 1000 ml BAG 1,000 ML IV SCH (00:21)
[2020-06-30] MEDS: Multivitamins/Minerals TAB PO SCH (08:05)
[2020-06-30 12:06] LABS: Copper Level 0.94 mcg/mL (0.75-1.45)
[2020-07-01] MEDS: LORazepam 2 mg VIAL 1 ml IV PUSH SCH (08:48)
[2020-07-01] MEDS: Multivitamins/Minerals TAB PO SCH (08:48)
[2020-07-01 12:08] VITALS: BP 137/101
== END 2020-07-01 16:14 | disposition home or self-care (01) | DRG 897 ==
LOC: ED 17:53 → MEDTELE 06-27 08:15
PROVIDERS: ADMIT Pediatrics; ATTEND Internal Medicine

== ENCOUNTER 2020-11-13 17:39 | Inpatient (IN) ==
[2020-11-13] MEDS ORDERED: Lorazepam PYXIS KEY PRN ×2 (17:47→19:55)
[2020-11-13] MEDS ORDERED: LORazepam 2 mg VIAL 1 ml IV PUSH ONE (17:47)
[2020-11-13] MEDS ORDERED: Lorazepam PYXIS KEY ONE (17:58)
[2020-11-13 18:07] LABS: ABS Basophils 0.1 10^3/ul (0-0.2); ABS Lymphocytes 0.5 10^3/ul (1.0-4.8); ABS Monocytes 0.5 10^3/ul (0-0.8); ABS Neutrophils 5.7 10^3/ul (1.5-7.7); Hematocrit 45 % (42-52); Hemoglobin 15.6 g/dL (14.0-18.0); Lymphocyte % 7.8 %; Mean Corpuscular HGB Conc 35 g/dL (31-36); Mean Corpuscular Hemoglobin 34 pg (27-31); Mean Corpuscular Volume 99 fL (80-94); Mean Platelet Volume 8.3 fL (7.4-10.4); Platelet Count 210 10^3/uL (150-450); Red Blood Count 4.56 10^6 /uL (4.18-5.48); Red Cell Distribution Width 14 % (10-15); White Blood Count 6.7 10^3/uL (3.5-10.8)
[2020-11-13 18:23] LABS: ALT 70 U/L (7-52); AST 74 U/L (13-39); Albumin 4.6 g/dL (3.2-5.2); Albumin/Globulin Ratio 1.3 (1-3); Alkaline Phosphatase 84 U/L (34-104); Anion Gap 16 mmol/L (2-11); Blood Urea Nitrogen 12 mg/dL (6-24); CO2 Carbon Dioxide 25 mmol/L (22-32); Calcium 10.2 mg/dL (8.6-10.3); Chloride 100 mmol/L (101-111); Creatine Kinase 73 U/L (10-223); EGFR African American 97.5 (>60); EGFR Non-African American 80.6 (>60); Globulin 3.5 g/dL (2-4); Glucose 118 mg/dL (70-100); Magnesium 1.9 mg/dL (1.9-2.7); Sodium 141 mmol/L (135-145); Total Protein 8.1 g/dL (6.4-8.9)
[2020-11-13] MEDS ORDERED: NS 0.9% 1000 ml BAG 1,000 ML IV ONE (18:32)
[2020-11-13 19:08] LABS: Acetaminophen < 15 mcg/mL; Alcohol, S < 10 mg/dL (<10)
[2020-11-13] MEDS ORDERED: Ondansetron 4 mg VIAL 2 MG/ML 2 ml VIAL IV PRN (19:35)
[2020-11-13] MEDS ORDERED: Thiamine IV 100 MG, Folic Acid IV 1 MG, Multiple Vitamin IV ADULT 10 ML in NS 0.9% 1000... IVPB ONE (19:35)
[2020-11-13] MEDS ORDERED: NS 0.9% 1000 ml BAG 1,000 ML IV SCH (19:45)
[2020-11-13 20:55] LABS: Activated Partial Thrombo Time 27.2 seconds (26.0-38.0); INR 0.99 (0.82-1.09)
[2020-11-13 21:25] LABS: Urine Benzodiazepine Screen None Detected (None Detect); Urine Cannabinoids Screen None Detected (None Detect); Urine Opiates Screen None Detected (None Detect)
[2020-11-13] MEDS: LORazepam 2 mg VIAL 1 ml IV PUSH SCH (23:31)
[2020-11-13] MEDS: Heparin 5000 UNITS/ML 1 mL VIAL SUBCUT SCH (23:31)
[2020-11-14] MEDS: LORazepam 2 mg VIAL 1 ml IV PUSH SCH ×8 (00:29→23:32)
[2020-11-14] MEDS: Heparin 5000 UNITS/ML 1 mL VIAL SUBCUT SCH ×3 (04:01→21:06)
[2020-11-14 07:07] LABS: ABS Monocytes 0.7 10^3/ul (0-0.8); ABS Neutrophils 3.4 10^3/ul (1.5-7.7); Eosinophil % 0.3 %; Hematocrit 39 % (42-52); Hemoglobin 13.4 g/dL (14.0-18.0); Lymphocyte % 20.2 %; Mean Corpuscular HGB Conc 34 g/dL (31-36); Mean Corpuscular Hemoglobin 34 pg (27-31); Mean Corpuscular Volume 99 fL (80-94); Mean Platelet Volume 8.4 fL (7.4-10.4); Nucleated Red Blood Cells % 0.1; Platelet Count 153 10^3/uL (150-450); Red Blood Count 3.99 10^6 /uL (4.18-5.48); Red Cell Distribution Width 15 % (10-15); White Blood Count 5.1 10^3/uL (3.5-10.8)
[2020-11-14 07:13] LABS: INR 1.01 (0.82-1.09)
[2020-11-14 07:23] LABS: Calcium 8.7 mg/dL (8.6-10.3); EGFR African American 153.8 (>60); EGFR Non-African American 127.1 (>60); Magnesium 1.9 mg/dL (1.9-2.7); Potassium 3.7 mmol/L (3.5-5.0)
[2020-11-14] MEDS: Multivitamins/Minerals TAB PO SCH (08:36)
[2020-11-14 16:52] LABS: TSH Ultra Thyroid Stim Horm 2.06 mcIU/mL (0.34-5.60)
[2020-11-14] MEDS: Thiamine 100 MG/ML 2 ml VIAL 500 MG in NS 0.9% 250 ml 250 ML IV SCH (17:44)
[2020-11-14] MEDS ORDERED: Lorazepam PYXIS KEY PRN (20:21)
[2020-11-15] MEDS: Thiamine 100 MG/ML 2 ml VIAL 500 MG in NS 0.9% 250 ml 250 ML IV SCH ×4 (00:06→22:28)
[2020-11-15] MEDS: LORazepam 2 mg VIAL 1 ml IV PUSH SCH ×11 (02:02→22:19)
[2020-11-15] MEDS: Heparin 5000 UNITS/ML 1 mL VIAL SUBCUT SCH ×3 (05:51→20:05)
[2020-11-15 09:00] LABS: Calcium 9.6 mg/dL (8.6-10.3); EGFR African American 117.2 (>60); EGFR Non-African American 96.9 (>60); Magnesium 1.9 mg/dL (1.9-2.7); Potassium 3.5 mmol/L (3.5-5.0)
[2020-11-15] MEDS: Multivitamins/Minerals TAB PO SCH (10:30)
[2020-11-15] MEDS ORDERED: LORazepam 2 mg VIAL 1 ml IV PUSH SCH (17:55)
[2020-11-16] MEDS: LORazepam 2 mg VIAL 1 ml IV PUSH SCH ×7 (00:25→23:48)
[2020-11-16] MEDS: Thiamine 100 MG/ML 2 ml VIAL 500 MG in NS 0.9% 250 ml 250 ML IV SCH ×3 (05:53→22:24)
[2020-11-16] MEDS: Heparin 5000 UNITS/ML 1 mL VIAL SUBCUT SCH ×3 (05:54→23:08)
[2020-11-16 05:55] LABS: ABS Basophils 0.1 10^3/ul (0-0.2); ABS Lymphocytes 1.4 10^3/ul (1.0-4.8); ABS Monocytes 0.7 10^3/ul (0-0.8); ABS Neutrophils 3.9 10^3/ul (1.5-7.7); Eosinophil % 0.4 %; Hematocrit 42 % (42-52); Hemoglobin 14.3 g/dL (14.0-18.0); Lymphocyte % 23.3 %; Mean Corpuscular HGB Conc 34 g/dL (31-36); Mean Corpuscular Hemoglobin 34 pg (27-31); Mean Corpuscular Volume 99 fL (80-94); Mean Platelet Volume 8.4 fL (7.4-10.4); Nucleated Red Blood Cells % 0.2; Platelet Count 178 10^3/uL (150-450); Red Cell Distribution Width 14 % (10-15); White Blood Count 6.1 10^3/uL (3.5-10.8)
[2020-11-16] MEDS: Multivitamins/Minerals TAB PO SCH (08:57)
[2020-11-16] MEDS: LORazepam 2 mg VIAL 1 ml IV PUSH PRN ×2 (20:29→23:47)
[2020-11-17] MEDS: LORazepam 2 mg VIAL 1 ml IV PUSH SCH ×5 (01:17→19:23)
[2020-11-17] MEDS: Heparin 5000 UNITS/ML 1 mL VIAL SUBCUT SCH ×3 (05:21→21:58)
[2020-11-17] MEDS: Thiamine 100 MG/ML 2 ml VIAL 500 MG in NS 0.9% 250 ml 250 ML IV SCH ×3 (05:30→21:58)
[2020-11-17] MEDS: Multivitamins/Minerals TAB PO SCH (08:18)
[2020-11-17] MEDS ORDERED: NS 0.9% 1000 ml BAG 1,000 ML IV SCH (22:00)
[2020-11-18] MEDS: LORazepam 2 mg VIAL 1 ml IV PUSH SCH ×4 (01:18→23:07)
[2020-11-18] MEDS: Heparin 5000 UNITS/ML 1 mL VIAL SUBCUT SCH ×2 (06:01→13:13)
[2020-11-18] MEDS: Thiamine 100 MG/ML 2 ml VIAL 500 MG in NS 0.9% 250 ml 250 ML IV SCH ×2 (06:01→13:43)
[2020-11-18 06:21] LABS: EGFR African American 101.2 (>60); EGFR Non-African American 83.6 (>60)
[2020-11-18] MEDS ORDERED: Potassium Chlor 20 meq TAB.ER PO ONE (07:35)
[2020-11-18] MEDS ORDERED: KCL 20 MEQ/100 ML IVPREMIX 20 MEQ/100 ML BAG IV ONE (07:35)
[2020-11-18 07:57] LABS: Magnesium 1.9 mg/dL (1.9-2.7)
[2020-11-18] MEDS: Multivitamins/Minerals TAB PO SCH (08:09)
[2020-11-19] MEDS: Heparin 5000 UNITS/ML 1 mL VIAL SUBCUT SCH ×4 (00:28→20:34)
[2020-11-19] MEDS: Thiamine 100 MG/ML 2 ml VIAL 500 MG in NS 0.9% 250 ml 250 ML IV SCH (00:29)
[2020-11-19] MEDS: LORazepam 2 mg VIAL 1 ml IV PUSH SCH ×4 (01:43→22:04)
[2020-11-19] MEDS ORDERED: Lorazepam PYXIS KEY PRN ×2 (02:16→03:38)
[2020-11-19] MEDS ORDERED: LORazepam 2 mg VIAL 1 ml IV PUSH ONE ×2 (02:18→03:38)
[2020-11-19] MEDS ORDERED: LORazepam 2 mg VIAL 1 ml ONE (02:20)
[2020-11-19] MEDS ORDERED: Haloperidol 5 mg/ml SDV IV/IM 5 MG/ML AMP IV SLOW PU ONE ×2 (03:40→04:03)
[2020-11-19] MEDS ORDERED: Haloperidol 5 mg/ml SDV IV/IM 5 MG/ML AMP ONE (03:42)
[2020-11-19 06:34] LABS: Calcium 9.4 mg/dL (8.6-10.3); EGFR African American 115.6 (>60); EGFR Non-African American 95.5 (>60); Potassium 3.4 mmol/L (3.5-5.0)
[2020-11-19] MEDS ORDERED: Potassium Chlor 20 meq TAB.ER PO ONE (06:43)
[2020-11-19] MEDS: Multivitamins/Minerals TAB PO SCH (10:15)
[2020-11-19] MEDS ORDERED: Haloperidol 5 mg/ml SDV IV/IM 5 MG/ML AMP IV SLOW PU PRN (18:03)
[2020-11-20] MEDS: LORazepam 2 mg VIAL 1 ml IV PUSH SCH ×8 (00:15→22:50)
[2020-11-20] MEDS: Heparin 5000 UNITS/ML 1 mL VIAL SUBCUT SCH ×3 (04:24→20:46)
[2020-11-20] MEDS: Multivitamins/Minerals TAB PO SCH (09:22)
[2020-11-21] MEDS: LORazepam 2 mg VIAL 1 ml IV PUSH SCH ×6 (00:19→19:51)
[2020-11-21] MEDS: Heparin 5000 UNITS/ML 1 mL VIAL SUBCUT SCH ×3 (04:24→20:14)
[2020-11-21 05:54] LABS: Calcium 9.5 mg/dL (8.6-10.3); EGFR African American 85.9 (>60); Magnesium 1.9 mg/dL (1.9-2.7); Potassium 3.1 mmol/L (3.5-5.0)
[2020-11-21] MEDS: Multivitamins/Minerals TAB PO SCH (08:10)
[2020-11-21] MEDS: KCL 20 MEQ/100 ML IVPREMIX 20 MEQ/100 ML BAG IV SCH ×2 (08:27→10:34)
[2020-11-21] MEDS: Magnesium Hydroxide LIQ 30 ML UDC PO PRN (12:08)
[2020-11-22] MEDS: LORazepam 2 mg VIAL 1 ml IV PUSH SCH ×2 (01:36→22:53)
[2020-11-22] MEDS: Heparin 5000 UNITS/ML 1 mL VIAL SUBCUT SCH ×3 (05:01→20:08)
[2020-11-22 05:40] LABS: Calcium 9.6 mg/dL (8.6-10.3); EGFR African American 97.5 (>60); EGFR Non-African American 80.6 (>60); Potassium 3.3 mmol/L (3.5-5.0)
[2020-11-22] MEDS ORDERED: KCL 20 MEQ/100 ML IVPREMIX 20 MEQ/100 ML BAG IV ONE (08:34)
[2020-11-22] MEDS: Multivitamins/Minerals TAB PO SCH (10:06)
[2020-11-23] MEDS: Heparin 5000 UNITS/ML 1 mL VIAL SUBCUT SCH (05:07)
[2020-11-23 06:44] LABS: Calcium 9.2 mg/dL (8.6-10.3); EGFR African American 87.9 (>60); EGFR Non-African American 72.6 (>60); Potassium 3.4 mmol/L (3.5-5.0)
[2020-11-23] MEDS ORDERED: LORazepam 2 mg VIAL 1 ml IV PUSH SCH (07:27)
[2020-11-23] MEDS ORDERED: KCL 20 MEQ/100 ML IVPREMIX 20 MEQ/100 ML BAG IV ONE (07:53)
[2020-11-23] MEDS: Enoxaparin 40 MG/0.4 ML SYR SUBCUT SCH (08:57)
[2020-11-23] MEDS: Multivitamins/Minerals TAB PO SCH (08:58)
[2020-11-23] MEDS: Magnesium Hydroxide LIQ 30 ML UDC PO PRN (18:22)
[2020-11-24 06:46] LABS: Calcium 9.4 mg/dL (8.6-10.3); Magnesium 2.2 mg/dL (1.9-2.7); Potassium 4.2 mmol/L (3.5-5.0)
[2020-11-24 06:52] LABS: EGFR African American 106.5 (>60)
[2020-11-24] MEDS ORDERED: Senna TAB 8.6 mg TAB PO PRN (07:07)
[2020-11-24] MEDS ORDERED: Polyethylene Glycol 3350 17 GM PACKET PO PRN (07:07)
[2020-11-24 08:59] LABS: Albumin 3.7 g/dL (3.2-5.2); Indirect Bilirubin 0.5 mg/dL (0.3-1.0); Total Bilirubin 0.6 mg/dL (0.2-1.0)
[2020-11-24 09:05] LABS: Albumin/Globulin Ratio 1.2 (1-3); Total Protein 6.7 g/dL (6.4-8.9)
[2020-11-24] MEDS: Enoxaparin 40 MG/0.4 ML SYR SUBCUT SCH (09:06)
[2020-11-24] MEDS: Multivitamins/Minerals TAB PO SCH (09:07)
[2020-11-25] MEDS: Multivitamins/Minerals TAB PO SCH (08:55)
[2020-11-25] MEDS: Enoxaparin 40 MG/0.4 ML SYR SUBCUT SCH (08:57)
[2020-11-26 06:23] LABS: Calcium 9.4 mg/dL (8.6-10.3); EGFR African American 84.1 (>60); EGFR Non-African American 69.5 (>60); Potassium 3.5 mmol/L (3.5-5.0)
[2020-11-26] MEDS: Enoxaparin 40 MG/0.4 ML SYR SUBCUT SCH (08:02)
[2020-11-26] MEDS: Multivitamins/Minerals TAB PO SCH (08:03)
[2020-11-27 05:07] LABS: Hematocrit 40 % (42-52); Mean Corpuscular HGB Conc 35 g/dL (31-36); Mean Corpuscular Hemoglobin 34 pg (27-31); Mean Corpuscular Volume 96 fL (80-94); Mean Platelet Volume 8.8 fL (7.4-10.4); Platelet Count 394 10^3/uL (150-450); Red Blood Count 4.13 10^6 /uL (4.18-5.48); Red Cell Distribution Width 14 % (10-15)
[2020-11-27 05:25] LABS: Calcium 9.3 mg/dL (8.6-10.3); EGFR African American 85.9 (>60); Potassium 3.1 mmol/L (3.5-5.0)
[2020-11-27] MEDS ORDERED: Potassium Chloride LIQUID 20 MEQ/15 ML LIQUID PO ONE (07:20)
[2020-11-27] MEDS: Multivitamins/Minerals TAB PO SCH (09:42)
[2020-11-27] MEDS: Enoxaparin 40 MG/0.4 ML SYR SUBCUT SCH (09:43)
[2020-11-27] MEDS: Thiamine 100 MG/ML 2 ml VIAL 100 MG in NS 0.9% 50 ML 50 ML IV SCH (18:13)
[2020-11-27] MEDS: Magnesium Hydroxide LIQ 30 ML UDC PO PRN (20:01)
[2020-11-28 05:16] LABS: Hematocrit 42 % (42-52); Hemoglobin 14.7 g/dL (14.0-18.0); Mean Corpuscular HGB Conc 35 g/dL (31-36); Mean Corpuscular Hemoglobin 34 pg (27-31); Mean Corpuscular Volume 96 fL (80-94); Mean Platelet Volume 8.8 fL (7.4-10.4); Platelet Count 384 10^3/uL (150-450); Red Blood Count 4.35 10^6 /uL (4.18-5.48); Red Cell Distribution Width 14 % (10-15); White Blood Count 9.4 10^3/uL (3.5-10.8)
[2020-11-28 05:20] LABS: INR 1.1 (0.82-1.09)
[2020-11-28 05:34] LABS: Calcium 9.6 mg/dL (8.6-10.3); EGFR African American 78.2 (>60); EGFR Non-African American 64.7 (>60); Magnesium 2.2 mg/dL (1.9-2.7); Potassium 3.3 mmol/L (3.5-5.0)
[2020-11-28] MEDS ORDERED: KCL 20 MEQ/100 ML IVPREMIX 20 MEQ/100 ML BAG IV ONE (08:13)
[2020-11-28] MEDS: Enoxaparin 40 MG/0.4 ML SYR SUBCUT SCH (10:14)
[2020-11-28] MEDS: Multivitamins/Minerals TAB PO SCH (10:14)
[2020-11-28] MEDS: Carbidopa/Levodop 25/100 MG TAB PO SCH ×2 (12:51→21:33)
[2020-11-28] MEDS: Magnesium Hydroxide LIQ 30 ML UDC PO PRN (13:10)
[2020-11-28] MEDS ORDERED: Hyaluronidase 15 units/mL for Extravasation Intradermal Use INTRADERM ONE (14:45)
[2020-11-28] MEDS ORDERED: HYALURONIDASE HUMAN INTRADERM ONE (15:00)
[2020-11-28] MEDS ORDERED: SODIUM CHLORIDE 0.9% INTRADERM ONE (15:00)
[2020-11-28] MEDS: Thiamine 100 MG/ML 2 ml VIAL 100 MG in NS 0.9% 50 ML 50 ML IV SCH (18:12)
[2020-11-29 01:56] LABS: Urine Appearance Cloudy; Urine Bilirubin Negative (Negative); Urine Blood 2+ (Negative); Urine Color Amber; Urine Glucose Negative (Negative); Urine Ketones Negative (Negative); Urine Nitrite Negative (Negative); Urine Protein 1+(30 mg/dL) (Negative); Urine Specific Gravity 1.021 (1.002-1.030); Urine Urobilinogen Positive (Negative)
[2020-11-29 02:05] LABS: Urine Bacteria Absent (Absent); Urine Red Blood Cell 2+(6-10/hpf) (Absent); Urine White Blood Cell Trace(0-5/hpf) (Absent)
[2020-11-29 02:06] LABS: Urine Squamous Epithelial Cell Present (Absent)
[2020-11-29 05:30] LABS: Calcium 9.6 mg/dL (8.6-10.3); EGFR Non-African American 70.3 (>60); Magnesium 2.2 mg/dL (1.9-2.7); Potassium 3.6 mmol/L (3.5-5.0)
[2020-11-29] MEDS: Multivitamins/Minerals TAB PO SCH (08:10)
[2020-11-29] MEDS: Carbidopa/Levodop 25/100 MG TAB PO SCH ×3 (08:10→20:44)
[2020-11-29] MEDS: Enoxaparin 40 MG/0.4 ML SYR SUBCUT SCH (08:18)
[2020-11-29 14:09] LABS: Phosphorus 2.7 mg/dL (2.5-5.0)
[2020-11-29] MEDS: Thiamine 100 MG/ML 2 ml VIAL 100 MG in NS 0.9% 50 ML 50 ML IV SCH (16:18)
[2020-11-30] MEDS: Enoxaparin 40 MG/0.4 ML SYR SUBCUT SCH (08:01)
[2020-11-30] MEDS: Carbidopa/Levodop 25/100 MG TAB PO SCH ×3 (08:02→20:25)
[2020-11-30] MEDS: Multivitamins/Minerals TAB PO SCH (08:03)
[2020-11-30] MEDS: Thiamine 100 MG/ML 2 ml VIAL 100 MG in NS 0.9% 50 ML 50 ML IV SCH (16:20)
[2020-12-01 06:43] LABS: ABS Basophils 0.1 10^3/ul (0-0.2); ABS Eosinophils 0.1 10^3/ul (0-0.6); ABS Lymphocytes 1.7 10^3/ul (1.0-4.8); ABS Monocytes 0.8 10^3/ul (0-0.8); ABS Neutrophils 6.7 10^3/ul (1.5-7.7); Eosinophil % 0.8 %; Hematocrit 40 % (42-52); Hemoglobin 13.9 g/dL (14.0-18.0); Lymphocyte % 18.2 %; Mean Corpuscular HGB Conc 35 g/dL (31-36); Mean Corpuscular Hemoglobin 34 pg (27-31); Mean Corpuscular Volume 96 fL (80-94); Mean Platelet Volume 8.8 fL (7.4-10.4); Platelet Count 349 10^3/uL (150-450); Red Blood Count 4.12 10^6 /uL (4.18-5.48); Red Cell Distribution Width 13 % (10-15); White Blood Count 9.4 10^3/uL (3.5-10.8)
[2020-12-01 07:04] LABS: Calcium 9.2 mg/dL (8.6-10.3); EGFR African American 95.2 (>60); EGFR Non-African American 78.7 (>60); Potassium 3.1 mmol/L (3.5-5.0)
[2020-12-01] MEDS ORDERED: Potassium Chlor 20 meq TAB.ER PO ONE (08:15)
[2020-12-01] MEDS: Carbidopa/Levodop 25/100 MG TAB PO SCH ×2 (09:54→14:52)
[2020-12-01] MEDS: Multivitamins/Minerals TAB PO SCH (09:54)
[2020-12-01] MEDS: Enoxaparin 40 MG/0.4 ML SYR SUBCUT SCH (09:55)
[2020-12-01 16:40] VITALS: BP 135/80
[2020-12-01] MEDS: Thiamine 100 MG/ML 2 ml VIAL 100 MG in NS 0.9% 50 ML 50 ML IV SCH (19:41)
[2020-12-02] LABS: Urine Collection Duration 24 h; Urine Lead 24Hr <1 mcg/24 h (<2); Urine Mercury 24 Hour <2 mcg/24 h (<2)
== END 2020-12-01 19:25 | DRG 897 ==
LOC: ED 17:39 → MED 17:39
PROVIDERS: ADMIT Internal Medicine; ATTEND Internal Medicine